=== PATIENT | male | born 1975 | race Caucasian/White ===

== ENCOUNTER 2017-04-16 23:01 | Emergency (ER) | payer OTHER ==
[2017-04-16] MEDS ORDERED: Ketorolac 60 MG/2 ML SDV IM ONE (23:17)
--- NOTE | 2017-04-17 00:19 | EDM.PDOC ---
ED HPI GENERAL MEDICAL PROBLEM - General Chief Complaint: Back Pain or Injury Stated Complaint: PAIN LT HIP Time Seen by Provider: 04/17/17 00:16 Source of Information: Reports: Patient - History of Present Illness INITIAL COMMENTS - FREE TEXT/NARRATIVE: HISTORY AND PHYSICAL: History of present illness: [Patient with a history of low back pain at least one prior episode in the remote past presents with low back pain 5 out of 10 with radiation into the left buttock at times to the level of the left calf with pain and numbness sensation Symptoms have been present over the last week, he was at work on a "creeper "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 No footdrop saddle anesthesia bowel or urine symptoms Denies injury or trauma No fever nausea vomiting chills sweats no chest pain shortness breath headache dizziness palpitation about a urine symptoms ] Review of systems: As per history of present illness and below otherwise all systems reviewed and negative. Past medical history: As per history of present illness and as reviewed below otherwise noncontributory. Surgical history: As per history of present illness and as reviewed below otherwise noncontributory. Social history: No reported history of drug or alcohol abuse. Family history: As per history of present illness and as reviewed below otherwise noncontributory. Physical exam: HEENT: Atraumatic, normocephalic, pupils reactive, negative for conjunctival pallor or scleral icterus, mucous membranes moist, throat clear, neck supple, nontender, trachea midline. Lungs: Clear to auscultation, breath sounds equal bilaterally, chest nontender. Heart: S1S2, regular, negative for clicks, rubs, or JVD. Abdomen: Soft, nondistended, nontender. Negative for masses or hepatosplenomegaly. Negative for costovertebral tenderness. Pelvis: Stable nontender. Genitourinary: Deferred. Rectal: Deferred. Extremities: Atraumatic, negative for cords or calf pain. Neurovascular unremarkable. Straight leg raise to 30 his not increase any pain or radiculopathy Neuro: Awake, alert, oriented. Cranial nerves II through XII unremarkable. Cerebellum unremarkable. Motor and sensory unremarkable throughout. Exam nonfocal. No footdrop or saddle anesthesia Diagnostics: [Lumbar spine ] Therapeutics: [Cataflam 75 mg by mouth 3 times a day #30 no refill Flexeril 10 mg by mouth 3 times a day when necessary #30 no refill ] Follow-up with primary care Impression: [Left sciatic distribution pain Low back pain] Definitive disposition and diagnosis as appropriate pending reevaluation and review of above. low back Pain Score (Numeric/FACES): 10 - Related Data Allergies Allergy/AdvReac Type Severity Reaction Status Date / Time No Known Allergies Allergy Verified 04/16/17 23:17 Home Meds: Home Meds . [No Known Home Meds] 04/16/17 [History] Past Medical History - Past Health History Medical/Surgical History: Denies Medical/Surgical History Social & Family History - Family History Family Medical History: Noncontributory - Tobacco Use Smoking Status *Q: Current Every Day Smoker Years of Tobacco use: 30 Packs/Tins Daily: 1 - Recreational Drug Use Recreational Drug Use: No ED ROS GENERAL - Review of Systems Review Of Systems: ROS reveals no pertinent complaints other than HPI. ED EXAM, GENERAL - Physical Exam Exam: See Below Course - Vital Signs Last Recorded V/S: Last Vital Signs Temp 97.8 F 04/16/17 23:01 Pulse 91 04/16/17 23:01 Resp 20 04/16/17 23:01 BP 169/102 H 04/16/17 23:01 Pulse Ox 95 04/16/17 23:01 - Orders/Labs/Meds Orders: Active Orders 24 hr Category Date Time Status Lumbar Spine 2 or 3V [CR] Stat Exams 04/16/17 23:17 Taken Meds: Medications Discontinued Medications Generic Name Dose Route Start Last Admin Trade Name Freq PRN Reason Stop Dose Admin Ketorolac Tromethamine 60 mg 04/16/17 23:17 04/16/17 23:47 Toradol IM 04/16/17 23:18 60 mg ONETIME ONE Administration Departure - Departure Time of Disposition: 00:18 Disposition: Home, Self-Care 01 Condition: Good Clinical Impression: Low back pain - Discharge Information Referrals: PCP,None [Primary Care Provider] - Additional Instructions: Medication as prescribed Return if symptoms persist or worsen Ice or heat 20 minute intervals 3 times daily whichever gains most benefit 20 pound weight limit recommended Follow-up with primary care in 2 weeks sooner as needed [facility] - [facility] [address] [place] [id number] The following information is given to patients seen in the emergency department who are being discharged to home. This information is to outline your options for follow-up care. We provide all patients seen in our emergency department with a follow-up referral. The need for follow-up, as well as the timing and circumstances, are variable depending upon the specifics of your emergency department visit. If you don't have a primary care physician on staff, we will provide you with a referral. We always advise you to contact your personal physician following an emergency department visit to inform them of the circumstance of the visit and for follow-up with them and/or the need for any referrals to a consulting specialist. The emergency department will also refer you to a specialist when appropriate. This referral assures that you have the opportunity for follow-up care with a specialist. All of these measure are taken in an effort to provide you with optimal care, which includes your follow-up. Under all circumstances we always encourage you to contact your private physician who remains a resource for coordinating your care. When calling for follow-up care, please make the office aware that this follow-up is from your recent emergency room visit. If for any reason you are refused follow-up, please contact the [facility] emergency department at and asked to speak to the emergency department charge nurse. - My Orders Last 24 Hours: My Active Orders 04/16/17 23:17 Lumbar Spine 2 or 3V [CR] Stat - Assessment/Plan Last 24 Hours: My Active Orders 04/16/17 23:17 Lumbar Spine 2 or 3V [CR] Stat
--- NOTE | 2017-04-18 06:43 | CR ---
EXAM DATE: 04/16/17 PATIENT'S AGE: 41 Patient: BENY SEGOVIA Facility: [place], [place] Site . Site : 1975 Study: XRay Spine Lumbar [id number]/3/2018 11:45:56 PM Ordering Physician: Doctor Zimmerman Final Report: INDICATION: Lumbar Pain TECHNIQUE: Lumbar spine radiograph 3 views COMPARISON: None FINDINGS: Severe degradation of image quality noted due to body habitus. Bones: No acute fractures or aggressive bone lesions are identified. Alignment is normal. Discs: The disc spaces are unremarkable in appearance. The facet joints are unremarkable. Soft tissues: Unremarkable. No radiopaque foreign bodies are seen. IMPRESSION: 1. No acute osseous injuries or abnormalities are noted. 2. Severe degradation of image quality noted due to body habitus. Dictated by: Neel Gonzalez MD @ 04/17/2017 00:07:35 (Electronic Signature) Report Signed by Proxy. HAYDE
== END 2017-04-17 00:36 | disposition home or self-care (01) ==
LOC: MW.ED 23:01
DX: M54.42 Lumbago with sciatica, left side (principal); F17.210 Nicotine dependence, cigarettes, uncomplicated
CPT/HCPCS: 72100; 96372; 99283; J1885

== ENCOUNTER 2019-11-19 09:20 | Emergency (ER) | payer OTHER ==
--- NOTE | 2019-11-19 10:32 | CR ---
Indication: Injury and pain Technique: Left hand 2 views Comparison: None Findings/Impression: Bones: Alignment is normal. No fractures or suspicious bone lesions. Joint spaces: Unremarkable. Soft tissues: Soft tissue injury present in the 4th finger. No foreign body. Dictated by Justin Pruitt MD @ Nov 19 2019 10:24AM Signed by Dr. Justin Pruitt @ Nov 19 2019 10:31AM
--- NOTE | 2019-11-19 10:32 | EDM.PDOC ---
ED HPI GENERAL MEDICAL PROBLEM - General Chief Complaint: Laceration Stated Complaint: LACERATION TO FINGERS LT Time Seen by Provider: 11/19/19 09:36 - History of Present Illness INITIAL COMMENTS - FREE TEXT/NARRATIVE: History of present illness: Patient presents with a left finger injury. 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 There is a laceration abrasion to the volar lateral aspect of this finger. It is approximately 2 cm in length he is complaining of forearm pain and elbow pain. His tetanus is up-to-date he denies any other medical problems no other injuries nothing makes it better or worse Review of systems: As per history of present illness and below otherwise all systems reviewed and negative. Past medical history: As per history of present illness and as reviewed below otherwise noncontributory. Surgical history: As per history of present illness and as reviewed below otherwise noncontributory. Social history: No reported history of drug or alcohol abuse. Family history: As per history of present illness and as reviewed below otherwise noncontributory. Physical exam: HEENT: Atraumatic, normocephalic, pupils reactive, negative for conjunctival pallor or scleral icterus, mucous membranes moist, throat clear, neck supple, nontender, trachea midline. Lungs: Clear to auscultation, breath sounds equal bilaterally, chest nontender. Heart: S1S2, regular, negative for clicks, rubs, or JVD. Abdomen: Soft, nondistended, nontender. Negative for masses or hepatosplenomegaly. Negative for costovertebral tenderness. Pelvis: Stable nontender. Genitourinary: Deferred. Rectal: Deferred. Extremities: Atraumatic, negative for cords or calf pain. Neurovascular unremarkable. There is a 2 cm abrasion/laceration injection injury to the left volar lateral aspect of the ring finger. The finger is swollen diffusely there is no pain or crepitance in the forearm or elbow to palpation good distal pulse motor and sensation are present Neuro: Awake, alert, oriented. Cranial nerves II through XII unremarkable. Cerebellum unremarkable. Motor and sensory unremarkable throughout. Exam nonfocal. Diagnostics: [] Therapeutics: [] Impression: High-pressure injection injury will get x-rays of the hand forearm and elbow where he is experiencing pain and reassess the patient [] Plan: [] Definitive disposition and diagnosis as appropriate pending reevaluation and review of above. left hand Pain Score (Numeric/FACES): 3 - Related Data Allergies Allergy/AdvReac Type Severity Reaction Status Date / Time No Known Allergies Allergy Verified 11/19/19 09:34 Home Meds: Home Meds Amoxicillin/Clavulanate K [Augmentin 500-125 MG] 1 tab PO Q8H #30 tab 11/19/19 [Rx] Naproxen [EC-Naproxen] 500 mg PO Q12HR #20 tablet. 11/19/19 [Rx] Past Medical History - Past Health History Medical/Surgical History: Denies Medical/Surgical History - Infectious Disease History Infectious Disease History: Reports: None Social & Family History - Family History Family Medical History: Noncontributory - Tobacco Use Smoking Status *Q: Current Every Day Smoker Years of Tobacco use: 25 Packs/Tins Daily: 1 - Recreational Drug Use Recreational Drug Use: No ED ROS GENERAL - Review of Systems Review Of Systems: See Below ED EXAM, SKIN/RASH Exam: See Below Course - Vital Signs Text/Narrative:: A 2 view left hand read interpreted by me there is increased swelling in the fourth digit consistent with injection injury. 2 view left forearm is unremarkable. Read interpreted by me. 2 view left elbow there is a foreign body superficially in the skin in the anterior aspect of the antecubital fossa. Otherwise there is no abnormalities bony or soft tissue enriquez. Read and interpreted by me Discussed case with Dr. Osmar Vizcaino who is a hand surgeon at [place] he recommends placing the patient on empiric antibiotics analgesia and recheck the wound in the ED he may need to be transferred to the [place] ED if signs of infection develop. Patient's tetanus is up-to-date he will be discharged home on Augmentin follow- up with primary care if you are worsening at any point time return to the emergency department. Last Recorded V/S: Last Vital Signs Temp 36.1 C 11/19/19 09:35 Pulse 69 11/19/19 09:35 Resp 17 11/19/19 09:35 BP 156/78 H 11/19/19 09:35 Pulse Ox 95 11/19/19 09:35 Departure - Departure Time of Disposition: 11:06 Disposition: Home, Self-Care 01 Condition: Good Clinical Impression: High pressure injury of left hand - Discharge Information *PRESCRIPTION DRUG MONITORING PROGRAM REVIEWED*: Not Applicable *COPY OF PRESCRIPTION DRUG MONITORING REPORT IN PATIENT LARS: Not Applicable Instructions: Puncture Wound, [id number] Referrals: PCP,None [Primary Care Provider] - Forms: ED Department Discharge Additional Instructions: The following information is given to patients seen in the emergency department who are being discharged to home. This information is to outline your options for follow-up care. We provide all patients seen in our emergency department with a follow-up referral. The need for follow-up, as well as the timing and circumstances, are variable depending upon the specifics of your emergency department visit. If you don't have a primary care physician on staff, we will provide you with a referral. We always advise you to contact your personal physician following an emergency department visit to inform them of the circumstance of the visit and for follow-up with them and/or the need for any referrals to a consulting specialist. The emergency department will also refer you to a specialist when appropriate. This referral assures that you have the opportunity for follow-up care with a specialist. All of these measure are taken in an effort to provide you with optimal care, which includes your follow-up. Under all circumstances we always encourage you to contact your private physician who remains a resource for coordinating your care. When calling for follow-up care, please make the office aware that this follow-up is from your recent emergency room visit. If for any reason you are refused follow-up, please contact the [facility] Emergency Department at and asked to speak to the emergency department charge nurse. Sepsis Event Note (ED) - Evaluation Sepsis Screening Result: No Definite Risk - Focused Exam Vital Signs: Vital Signs Temp Pulse Resp BP Pulse Ox 11/19/19 09:35 36.1 C 69 17 156/78 H 95
--- NOTE | 2019-11-19 10:35 | CR ---
Indication: Injury and pain Technique: Left elbow 2 views Comparison: None Findings/Impression: Bones: Alignment is normal. No fractures or bone lesions. Joint spaces: Unremarkable. No joint effusion. Soft tissues: Punctate metallic foreign body is in the anterior subcutaneous tissues. No other soft tissue abnormality. Dictated by Justin Pruitt MD @ Nov 19 2019 10:31AM Signed by Dr. Justin Pruitt @ Nov 19 2019 10:33AM
--- NOTE | 2019-11-19 10:37 | CR ---
Indication: Injury and pain Technique: Left forearm 2 views Comparison: None Findings/Impression: Bones: Alignment is normal. No fractures or bone lesions. Joint spaces: Unremarkable. Soft tissues: Unremarkable. Dictated by Justin Pruitt MD @ Nov 19 2019 10:33AM Signed by Dr. Justin Pruitt @ Nov 19 2019 10:35AM
[2019-11-19] MEDS ORDERED: Bacitracin Oint 1 GM U/D Packet TOP ONE (11:12)
== END 2019-11-19 11:30 | disposition home or self-care (01) ==
LOC: MW.ED 09:20
DX: S69.82XA Other specified injuries of left wrist, hand and finger(s), initial encounter (principal); F17.210 Nicotine dependence, cigarettes, uncomplicated; W31.89XA Contact with other specified machinery, initial encounter
CPT/HCPCS: 73070-26-LT; 73070-LT; 73090-26-LT; 73090-LT; 73120-26-LT; 73120-LT; 99283; 99283-25

== ENCOUNTER 2020-02-12 13:28 | Emergency (ER) | payer OTHER ==
--- NOTE | 2020-02-12 14:54 | CT ---
INDICATION: Trauma. COMPARISON: None TECHNIQUE: CT examination of the head was performed as axial sections without intravenous contrast. Images were obtained from the vertex of the skull through the skull base. Please note that all CT scans at this facility use dose modulation, iterative reconstruction, and/or weight-based dosing when appropriate to reduce radiation dose to as low as reasonably achievable. FINDINGS: The brain shows no sign of mass lesion, mass effect, hemorrhage, or edema. The ventricles and sulci are normal in appearance for the patient`s age. The visualized portions of the orbits are normal in appearance. The osseous structures are normal in their appearance with no sign of abnormality in the skull base or calvarium. IMPRESSION: No visible acute intracranial posttraumatic findings. Intact calvaria. Please note that all CT scans at this facility use dose modulation, iterative reconstruction, and/or weight-based dosing when appropriate to reduce radiation dose to as low as reasonably achievable. Dictated by Osmar Prieto MD @ Feb 12 2020 2:50PM Signed by Dr. Osmar Prieto @ Feb 12 2020 2:52PM
--- NOTE | 2020-02-12 14:56 | CT ---
INDICATION: Trauma COMPARISON: None TECHNIQUE: CT examination of the cervical spine is performed without contrast using spiral technique. Thin axial, sagittal and coronal reconstructions were made. Please note that all CT scans at this facility use dose modulation, iterative reconstruction, and/or weight-based dosing when appropriate to reduce radiation dose to as low as reasonably achievable. FINDINGS: : There is straightening which is probably due to muscle spasm or positioning. There is no lytic or blastic lesion, fracture or dislocation identified. No significant degenerative changes. IMPRESSION: Straightening probably due to muscle spasm or positioning. No fracture, dislocation, destructive process or significant appearing arthritic finding. Please note that all CT scans at this facility use dose modulation, iterative reconstruction, and/or weight-based dosing when appropriate to reduce radiation dose to as low as reasonably achievable. Dictated by Osmar Prieto MD @ Feb 12 2020 2:52PM Signed by Dr. Osmar Prieto @ Feb 12 2020 2:55PM
[2020-02-12] MEDS ORDERED: Acetaminophen 325 MG Tab PO ONE (15:27)
--- NOTE | 2020-02-12 15:29 | EDM.PDOC ---
ED HPI GENERAL MEDICAL PROBLEM - General Chief Complaint: Head Injury Stated Complaint: HEAD INJURY Time Seen by Provider: 02/12/20 13:33 Source of Information: Reports: Patient History Limitations: Reports: No Limitations - History of Present Illness INITIAL COMMENTS - FREE TEXT/NARRATIVE: Presents reporting he was walking on icy surface when he slipped, his feet came out from under him and he fell backwards bouncing the back of his head onto the ground. He states he believes he lost consciousness for a short time. He got up under his own power and has been walking and up and about since. He has a laceration on the back of his head. He has some occipital pain and a headache. No visual symptoms, vomiting, focal weakness. He is not on blood thinners and is otherwise healthy. Tetanus vaccine within the last 5 years as he had injury. Neck Pain Score (Numeric/FACES): 7 - Related Data Allergies Allergy/AdvReac Type Severity Reaction Status Date / Time No Known Allergies Allergy Verified 02/12/20 13:33 Home Meds: Home Meds . [No Known Home Meds] 02/12/20 [History] Past Medical History - Past Health History Medical/Surgical History: Denies Medical/Surgical History - Infectious Disease History Infectious Disease History: Reports: Chicken Pox Social & Family History - Family History Family Medical History: No Pertinent Family History - Tobacco Use Tobacco Use Status *Q: Current Every Day Tobacco User Years of Tobacco use: 20 Packs/Tins Daily: 1 - Caffeine Use Caffeine Use: Reports: Coffee - Recreational Drug Use Recreational Drug Use: No ED ROS GENERAL - Review of Systems Review Of Systems: Comprehensive ROS is negative, except as noted in HPI. ED EXAM, HEAD INJURY - Physical Exam Exam: See Below Exam Limited By: No Limitations General Appearance: Alert, No Apparent Distress Head: Normocephalic, Other (2 cm laceration crown of head without crepitus, stepoffs. Mild soft swelling. ) Nexus Criteria: Posterior, Midline Cervical Tenderness (mild tenderness C2) Ears: Normal External Exam Nose: Normal Inspection Throat/Mouth: Normal Inspection Neck: Non-Tender Respiratory: No Respiratory Distress, Lungs Clear, Normal Breath Sounds Cardiovascular: Normal Peripheral Pulses, Regular Rate, Rhythm, No Edema GI/Abdominal Exam: Soft Back Exam: Normal Inspection, Full Range of Motion. No: Muscle Spasm, Paraspinal Tenderness, Vertebral Tenderness Extremities: Normal Inspection, Normal Range of Motion Neurologic: brick pitcher II-XII nml As Tested, No Motor/Sensory Deficits, Alert, Normal Mood/Affect, Oriented x 3 Skin: Normal Color, Warm/Dry - Bradley Coma Score Best Eye Response (Bradley): (4) Open Spontaneously Best Verbal Response (Bradley): (5) Oriented Best Motor Response (Bradley): (6) Obeys Commands ED LACERATION/WOUND & MARITZA PROC - Laceration/Wound Repair Head Lac/wound length in cm: 2 Appearance: Superficial Skin Prep: Chlorhexidine (Hibiciens) Closed with: [place] (4) Course - Vital Signs Last Recorded V/S: Last Vital Signs Temp 36.4 C 02/12/20 13:33 Pulse 61 02/12/20 14:58 Resp 18 02/12/20 14:58 BP 147/54 H 02/12/20 14:58 Pulse Ox 96 02/12/20 14:58 - Orders/Labs/Meds Orders: Active Orders 24 hr Category Date Time Status C Collar Applied [Spinal Immobilization] [RC] Care 02/12/20 13:48 Ordered ASDIRECTED - Re-Assessments/Exams Free Text/Narrative Re-Assessment/Exam: 02/12/20 15:33 Alert, oriented, asymptomatic in ER. Departure - Departure Time of Disposition: 15:34 Disposition: Home, Self-Care 01 Condition: Good Clinical Impression: Head injury Qualifiers: Encounter type: initial encounter Qualified Code(s): S09.90XA - Unspecified injury of head, initial encounter - Discharge Information Referrals: PCP,None [Primary Care Provider] - [facility] [Outside] [facility] [Outside] Additional Instructions: The following information is given to patients seen in the emergency department who are being discharged to home. This information is to outline your options for follow-up care. We provide all patients seen in our emergency department with a follow-up referral. The need for follow-up, as well as the timing and circumstances, are variable depending upon the specifics of your emergency department visit. If you don't have a primary care physician on staff, we will provide you with a referral. We always advise you to contact your personal physician following an emergency department visit to inform them of the circumstance of the visit and for follow-up with them and/or the need for any referrals to a consulting specialist. The emergency department will also refer you to a specialist when appropriate. This referral assures that you have the opportunity for follow-up care with a specialist. All of these measure are taken in an effort to provide you with optimal care, which includes your follow-up. Under all circumstances we always encourage you to contact your private physician who remains a resource for coordinating your care. When calling for follow-up care, please make the office aware that this follow-up is from your recent emergency room visit. If for any reason you are refused follow-up, please contact the [facility] Emergency Department at and asked to speak to the emergency department charge nurse. 1. Staple removal of 5 to 7 days in urgent care, return to ER or clinic. 2. Turn promptly for vomiting, visual symptoms, worsening headache. 3. Tylenol only for pain next 24 hours. Sepsis Event Note (ED) - Evaluation Sepsis Screening Result: No Definite Risk - Focused Exam Vital Signs: Vital Signs Temp Pulse Resp BP Pulse Ox 02/12/20 14:58 61 18 147/54 H 96 02/12/20 13:33 36.4 C 75 18 146/62 H 95 - My Orders Last 24 Hours: My Active Orders 02/12/20 13:48 C Collar Applied [Spinal Immobilization] [RC] ASDIRECTED - Assessment/Plan Last 24 Hours: My Active Orders 02/12/20 13:48 C Collar Applied [Spinal Immobilization] [RC] ASDIRECTED
== END 2020-02-12 15:44 | disposition home or self-care (01) ==
LOC: MW.ED 13:28
DX: S01.01XA Laceration without foreign body of scalp, initial encounter (principal); M54.2 Cervicalgia; F17.210 Nicotine dependence, cigarettes, uncomplicated; W00.0XXA Fall on same level due to ice and snow, initial encounter; Y93.01 Activity, walking, marching and hiking; Y92.89 Other specified places as the place of occurrence of the external cause; Y99.0 Civilian activity done for income or pay
CPT/HCPCS: 12001; 70450; 72125; 99284; A9270

== ENCOUNTER 2020-02-20 13:59 | Emergency (ER) | payer OTHER | END 2020-02-20 14:35 | disposition left against medical advice (07) | LOC: MW.ED 13:59 | DX: S01.01XD Laceration without foreign body of scalp, subsequent encounter (principal); W00.0XXD Fall on same level due to ice and snow, subsequent encounter | CPT/HCPCS: 99281 ==

== ENCOUNTER 2020-09-08 15:02 | Emergency (ER) | payer SELFPAY ==
[2020-09-08] MEDS ORDERED: Ketorolac 60 MG/2 ML SDV IM ONE (15:38)
[2020-09-08] MEDS ORDERED: traMADol 50 MG Tab PO ONE (15:38)
[2020-09-08] MEDS ORDERED: Orphenadrine 60 MG/2 ML Inj IM ONE (15:38)
--- NOTE | 2020-09-08 15:40 | EDM.PDOC ---
ED HPI GENERAL MEDICAL PROBLEM - General Chief Complaint: Back Pain or Injury Stated Complaint: BACK PAIN Time Seen by Provider: 09/08/20 15:07 Source of Information: Reports: Patient History Limitations: Reports: No Limitations - History of Present Illness INITIAL COMMENTS - FREE TEXT/NARRATIVE: HISTORY AND PHYSICAL: History of present illness: Patient is a 45-year-old male who presents to the ED today with concern of low back pain x1 day. Patient states that he was at work and bent down to grab a chainsaw and when he stood up felt a pulling sensation on the right side of his low back and since then has pain with moving and feels as if his muscle spasming. Patient denies any loss or retention of bowel bladder function or saddle anesthesia. Patient states he has had this happen approximately a year ago and states that it took 2 to 3 weeks but then improved. Patient denies any health history or any other symptoms or concerns. Patient denies fever, chills, chest pain, shortness of breath, or cough. Denies headache, neck stiff ness, change in vision, syncope, or near syncope. Denies nausea, vomiting, abdominal pain, diarrhea, constipation, or dysuria. Has not noted any blood in urine or stool. Patient has been eating and drinking appropriately. Review of systems: As per history of present illness and below otherwise all systems reviewed and negative. Past medical history: As per history of present illness and as reviewed below otherwise noncontributory. Surgical history: As per history of present illness and as reviewed below otherwise noncontrib utory. Social history: See social history for further information Family history: As per history of present illness and as reviewed below otherwise noncontributory. Physical exam: General: Patient is alert, oriented, and in no acute distress. Patient sitting comfortably on exam table. Vitals stable and reviewed by me. HEENT: Atraumatic, normocephalic, pupils equal and reactive bilaterally, n egative for conjunctival pallor or scleral icterus, mucous membranes moist, TMs normal bilaterally, throat clear, neck supple, nontender, trachea midline. No drooling or trismus noted. No meningeal signs. No hot potato voice noted. Lungs: Clear to auscultation, breath sounds equal bilaterally, chest nontender. Heart: S1S2, regular rate and rhythm without overt murmur Abdomen: Soft, nondistended, nontender. Negative for masses or hepatosplenomegaly. Negative for costovertebral tenderness. Pelvis: Stable nontender. Genitourinary: Deferred. Rectal: Deferred. Skin: Intact, warm, dry. No lesions or rashes noted. Extremities/musculoskeletal: No obvious deformity in the complete spine. No step-offs, crepitus, or point tenderness to palpation of the complete spine. Patient does have pain to palpation of the right sided paraspinous muscle and overlying the right-sided SI joint. Patient has limited range of motion of the lumbar spine but does have full range of motion of the cervical and thoracic spine. Patient is able to ambulate today in the ED but does have pain of his low back with doing so. Heel/toe gait intact. Patellar reflexes intact bilaterally. Straight leg raise intact bilaterally. Otherwise, atraumatic, negative for cords or calf pain. Neurovascular unremarkable. Neuro: Awake, alert, oriented. Cranial nerves II through XII unremarkable. Cerebellum unremarkable. Motor and sensory unremarkable throughout. Exam nonfocal. Notes: Strict return precautions thoroughly discussed with patient. Discussed importance for follow-up with a primary care provider. Voices understanding and is agreeable to plan of care. Denies any further questions or concerns at this time. Diagnostics: I did offer a lumbar x-ray but patient declines Therapeutics: Toradol, Norflex, tramadol Prescription: Diclofenac, Flexeril Impression: Low back pain Plan: 1. The medication you received today does cause drowsiness, so do not drive for the remaining day. 2. When resting please lay on a flat firm surface. Limit your mobility to prevent muscle stiffness. Get up to ambulate/move around/gentle stretching multiple times throughout the day. May alternate heat and ice to painful areas. 3. Tylenol as needed for back pain. Otherwise, take the prescribed Flexeril and diclofenac as directed. Diclofenac as an anti-inflammatory medication so do not take any additional NSAIDs with this medication, such as naproxen, ibuprofen, or Aleve. Flexeril, this medication may cause drowsiness, so do not take it while driving or needing to be functioning outside of the home. 4. Follow-up with your primary care provider as discussed. Return to the ED as needed and as discussed. Definitive disposition and diagnosis as appropriate pending reevaluation and review of above. right lower back Pain Score (Numeric/FACES): 10 - Related Data Allergies Allergy/AdvReac Type Severity Reaction Status Date / Time No Known Allergies Allergy Verified 09/08/20 15:10 Home Meds: Home Meds Cyclobenzaprine [Flexeril] 10 mg PO TID PRN #9 tab 09/08/20 [Rx] Diclofenac Sodium [Voltaren] 75 mg PO BIDMEALS PRN #15 tab.cr 09/08/20 [Rx] Past Medical History - Past Health History Medical/Surgical History: Denies Medical/Surgical History HEENT History: Reports: None Cardiovascular History: Reports: None Respiratory History: Reports: None Gastrointestinal History: Reports: None Genitourinary History: Reports: None Musculoskeletal History: Reports: None Neurological History: Reports: None Psychiatric History: Reports: None Endocrine/Metabolic History: Reports: None Hematologic History: Reports: None Immunologic History: Reports: None Oncologic (Cancer) History: Reports: None Dermatologic History: Reports: None - Infectious Disease History Infectious Disease History: Reports: Chicken Pox - Past Surgical History Head Surgeries/Procedures: Reports: None HEENT Surgical History: Reports: None Cardiovascular Surgical History: Reports: None Respiratory Surgical History: Reports: None GI Surgical History: Reports: None Male Surgical History: Reports: None Endocrine Surgical History: Reports: None Neurological Surgical History: Reports: None Musculoskeletal Surgical History: Reports: None Oncologic Surgical History: Reports: None Dermatological Surgical History: Reports: None Social & Family History - Family History Family Medical History: No Pertinent Family History - Tobacco Use Tobacco Use Status *Q: Current Every Day Tobacco User Years of Tobacco use: 20 Packs/Tins Daily: 1 - Caffeine Use Caffeine Use: Reports: Coffee, Soda - Recreational Drug Use Recreational Drug Use: No ED ROS GENERAL - Review of Systems Review Of Systems: Comprehensive ROS is negative, except as noted in HPI. ED EXAM, GENERAL - Physical Exam Exam: See Below (see dictation) Course - Vital Signs Last Recorded V/S: Last Vital Signs Temp 95.6 F L 09/08/20 15:11 Pulse 72 09/08/20 15:11 Resp 20 09/08/20 15:11 BP 113/62 09/08/20 15:11 Pulse Ox 98 09/08/20 15:11 - Orders/Labs/Meds Meds: Medications Discontinued Medications Generic Name Dose Route Start Last Admin Trade Name Freq PRN Reason Stop Dose Admin Ketorolac Tromethamine 60 mg 09/08/20 15:38 Ketorolac 60 Mg/2 Ml Sdv IM 09/08/20 15:39 ONETIME ONE Orphenadrine Citrate 60 mg 09/08/20 15:38 Orphenadrine 60 Mg/2 Ml Inj IM 09/08/20 15:39 ONETIME ONE Tramadol HCl 50 mg 09/08/20 15:38 Tramadol 50 Mg Tab PO 09/08/20 15:39 ONETIME ONE Departure - Departure Time of Disposition: 15:39 Disposition: Home, Self-Care 01 Clinical Impression: Low back pain Qualifiers: Chronicity: acute Back pain laterality: right Sciatica presence: without sciatica Qualified Code(s): M54.5 - Low back pain - Discharge Information Prescriptions: Cyclobenzaprine [Flexeril] 10 mg PO TID PRN #9 tab PRN Reason: Spasms Diclofenac Sodium [Voltaren] 75 mg PO BIDMEALS PRN #15 tab.cr PRN Reason: Pain Referrals: PCP,None [Primary Care Provider] - Forms: ED Department Discharge Additional Instructions: The following information is given to patients seen in the emergency department who are being discharged to home. This information is to outline your options for follow-up care. We provide all patients seen in our emergency department with a follow-up referral. The need for follow-up, as well as the timing and circumstances, are variable depending upon the specifics of your emergency department visit. If you don't have a primary care physician on staff, we will provide you with a referral. We always advise you to contact your personal physician following an emergency department visit to inform them of the circumstance of the visit and for follow-up with them and/or the need for any referrals to a consulting specialist. The emergency department will also refer you to a specialist when appropriate. This referral assures that you have the opportunity for follow-up care with a specialist. All of these measure are taken in an effort to provide you with optimal care, which includes your follow-up. Under all circumstances we always encourage you to contact your private physician who remains a resource for coordinating your care. When calling for follow-up care, please make the office aware that this follow-up is from your recent emergency room visit. If for any reason you are refused follow-up, please contact the [facility] Emergency Department at and asked to speak to the emergency department charge nurse. [facility] [address] [place] [address] [facility] [address] [place] [address] 1. The medication you received today does cause drowsiness, so do not drive for the remaining day. 2. When resting please lay on a flat firm surface. Limit your mobility to prevent muscle stiffness. Get up to ambulate/move around/gentle stretching multiple times throughout the day. May alternate heat and ice to painful areas. 3. Tylenol as needed for back pain. Otherwise, take the prescribed Flexeril and diclofenac as directed. Diclofenac as an anti-inflammatory medication so do not take any additional NSAIDs with this medication, such as naproxen, ibuprofen, or Aleve. Flexeril, this medication may cause drowsiness, so do not take it while driving or needing to be functioning outside of the home. 4. Follow-up with your primary care provider as discussed. Return to the ED as needed and as discussed. Sepsis Event Note (ED) - Evaluation Sepsis Screening Result: No Definite Risk - Focused Exam Vital Signs: Vital Signs Temp Pulse Resp BP Pulse Ox 09/08/20 15:11 95.6 F L 72 20 113/62 98
== END 2020-09-08 16:42 | disposition home or self-care (01) ==
LOC: MW.ED 15:02
DX: M54.5 Low back pain (principal); Z72.0 Tobacco use
CPT/HCPCS: 96372; 99283; A9270; J1885; J2360

== ENCOUNTER 2022-03-02 08:57 | Emergency (ER) | payer OTHER ==
[2022-03-02] MEDS ORDERED: Sodium Chloride 0.9% 1,000 ML IV ONE (09:40)
[2022-03-02] MEDS ORDERED: Sodium Chloride 0.9% 10 ML Syringe FLUSH PRN (09:40)
[2022-03-02] MEDS ORDERED: Sodium Chloride 0.9% 2.5 ML Syringe FLUSH PRN (09:40)
[2022-03-02] MEDS: Ondansetron 4 MG/2 ML SDV IVPUSH ONE ×2 (10:03→10:04)
[2022-03-02 10:37] LABS: CORONAVIRUS COVID-19 NAA NEGATIVE (NEGATIVE); INFLUENZA A NAA NEGATIVE (NEGATIVE); INFLUENZA B NAA NEGATIVE (NEGATIVE); RESPIRATORY SYNCYTIAL VIR NAA NEGATIVE (NEGATIVE)
[2022-03-02 10:50] LABS: BLOOD UREA NITROGEN,BUN 13 mg/dL (7.0-18.0); CARBON DIOXIDE,CO2 27.7 mmol/L (21.0-32.0); CHLORIDE,CL 104 mmol/L (98-107); GLUCOSE RANDOM 121 mg/dL (74-106); LIPASE 68 U/L (73-393); SODIUM,NA 141 mmol/L (136-148)
[2022-03-02 10:51] LABS: ESTIMATED GFR 110 mL/min (>60)
== END 2022-03-02 12:35 | disposition home or self-care (01) ==
LOC: MERGE 08:57 → MW.ED 08:57
DX: E86.0 Dehydration (principal); R11.2 Nausea with vomiting, unspecified; F17.210 Nicotine dependence, cigarettes, uncomplicated; Z20.822 Contact with and (suspected) exposure to COVID-19
CPT/HCPCS: 0241U; 36415; 70450; 70486; 71045; 80053; 80307; 81003; 83690; 83735; 84484; 85025; 85379; 93005; 96360; 99284; J3490; J7030; 93010; J2405

== ENCOUNTER 2023-11-01 19:02 | Emergency (ER) | payer OTHER | END 2023-11-01 21:56 | disposition home or self-care (01) | LOC: MW.ED 19:02 | DX: S02.5XXA Fracture of tooth (traumatic), initial encounter for closed fracture (principal); I10 Essential (primary) hypertension; Z75.8 Other problems related to medical facilities and other health care; X58.XXXA Exposure to other specified factors, initial encounter | CPT/HCPCS: 99283 ==